=== PATIENT | female | born 1945 | race Caucasian/White ===

== ENCOUNTER → 2017-11-16 | Outpatient (CLI) | payer MEDICARE ==
[~2017-11-16] MED LIST: ASPI-496 PO; BUPR150T6 PO; CHOL200024 PO; DESV100T PO; LEVO25TA2 PO; LISI-167 PO; LMFO1TAB PO; MELO15TA24 PO
[2017-11-16 14:23] LABS: BASOPHILS # (AUTO) 0.07 x10^3/uL (0-0.1); BASOPHILS % (AUTO) 1 % (0-1); EOSINOPHILS % (AUTO) 0 % (1-7); LYMPHOCYTES # (AUTO) 2.28 x10^3/uL (1-3.4); LYMPHOCYTES % (AUTO) 31 % (22-44); MD NO; MEAN CORPUSCULAR HEMOGLOBIN 32.7 pg (27.0-34.8); MEAN CORPUSCULAR HGB CONC 33.1 g/dL (32.4-35.8); MEAN CORPUSCULAR VOLUME 98.7 fL (80-100); MEAN PLATELET VOLUME 8.6 fL (7.4-10.4); MONOCYTES # (AUTO) 0.48 x10^3/uL (0.2-0.8); MONOCYTES % (AUTO) 7 % (2-9); NEUTROPHILS # (AUTO) 4.55 x10^3/uL (1.8-6.8); NEUTROPHILS % (AUTO) 62 % (42-75); PLATELET COUNT 272 x10^3/uL (130-400); RED CELL DISTRIBUTION WIDTH 13.5 % (9.6-15.2)
[2017-11-16 14:32] LABS: CULTURE INDICATED? YES; MICROSCOPIC INDICATED
[2017-11-16 14:34] LABS: ALBUMIN 4.1 g/dL (3.4-5.0); CALCIUM 9.5 mg/dL (8.5-10.1); CHLORIDE 107 mmol/L (98-107)
[2017-11-16 14:38] LABS: ALANINE AMINOTRANSFERASE 38 U/L (12-78); ALKALINE PHOSPHATASE 94 U/L (45-117); ANION GAP 8 mmol/L (5-15); BILIRUBIN,TOTAL 0.5 mg/dL (0.2-1.0); CREATININE 0.86 mg/dL (0.55-1.02); TOTAL PROTEIN 7.8 g/dL (6.4-8.2)
== END | disposition home or self-care (01) ==
LOC: STAR 13:26
PROVIDERS: ATTEND Orthopaedic Surgery
DX: Z01.818 Encounter for other preprocedural examination (principal); R94.31 Abnormal electrocardiogram [ECG] [EKG]; M16.11 Unilateral primary osteoarthritis, right hip
CPT/HCPCS: 36415; 80053; 81001; 85025; 87081; 87086; 93005

== ENCOUNTER 2017-12-03 08:22 | Inpatient (IN) | payer MEDICARE ==
[~2017-12-03] VITALS: Ht 167.6 cm; Wt 86.6 kg
[~2017-12-03 08:22] MED LIST changes: +CEFAZOLIN 1,000 MG ONE; +FENTANYL PF 100 MCG/2ML ONE; +KETOROLAC 60 MG/2 ML ONE; +LIDOCAINE-MPF 2% ,5ML ONE; +MIDAZOLAM 1 MG/ML, 2ML ONE; +PROPOFOL 10 MG/ML, 20ML ONE; +ROPIvacaine/PF 0.5%, 20 ML ONE; +SODIUM CHLORIDE 0.9% 100 ML ONE; +SODIUM CHLORIDE 0.9% PF 10ML ONE; +TRANEXAMIC ACID 100 MG/ML, 10ML ONE; +VANCOMYCIN 1,000 MG ONE
[2017-12-03] MEDS ORDERED: LACTATED RINGERS 1,000 ML IV SCH (09:27)
[2017-12-03 09:29] VITALS: BP 150/93
[2017-12-03] MEDS ORDERED: LIDOCAINE-MPF 2% ,5ML ONE (09:50)
[2017-12-03] MEDS ORDERED: PROPOFOL 10 MG/ML, 20ML ONE (09:50)
[2017-12-03] MEDS ORDERED: PROPOFOL 50 ML ONE (10:29)
[2017-12-03] MEDS ORDERED: DEXAMETHASONE 4 MG/ML, 1ML ONE (10:39)
[2017-12-03] MEDS ORDERED: PROMETHAZINE 25 MG/ML, 1ML IV PRN (11:30)
[2017-12-03] MEDS ORDERED: HYDROmorphone 1 MG/ML, 1ML IV PRN ×2 (11:30→12:30)
[2017-12-03] MEDS ORDERED: LABETALOL 5MG/ML, 20ML IV PRN (11:30)
[2017-12-03] MEDS ORDERED: hydrALAzine 20 MG/ML, 1ML IV PRN (11:30)
[2017-12-03] MEDS ORDERED: ACETAMINOPHEN 325 MG TABLET PO PRN (11:30)
[2017-12-03] MEDS ORDERED: MEPERIDINE/PF 25MG/0.5ML IVPush PRN (11:30)
[2017-12-03] MEDS ORDERED: ONDANSETRON 2MG/ML, 2ML IVPush PRN (11:30)
[2017-12-03] MEDS ORDERED: FENTANYL PF 100 MCG/2ML IV PRN (11:30)
[2017-12-03] MEDS ORDERED: OXYcodone 5 MG/5 ML ORAL.SOL UDC PO PRN (11:30)
[2017-12-03] MEDS ORDERED: ONDANSETRON 2MG/ML, 2ML ONE ×3 (11:43→12:45)
[2017-12-03] MEDS ORDERED: OXYcodone 5 MG/5 ML ORAL.SOL UDC ONE (12:09)
[2017-12-03] MEDS ORDERED: FENTANYL PF 100 MCG/2ML ONE (12:09)
[2017-12-03] MEDS ORDERED: HYDROmorphone 2 MG/ML, 1ML ONE (12:09)
[2017-12-03] MEDS ORDERED: ACETAMINOPHEN 650 MG/20.3 ML UDC ONE (12:12)
[2017-12-03] MEDS ORDERED: DIAZEPAM 5 MG TABLET PO PRN (12:30)
[2017-12-03] MEDS ORDERED: PROMETHAZINE 12.5 MG SUPP PR PRN (12:30)
[2017-12-03] MEDS ORDERED: ONDANSETRON 2MG/ML, 2ML IV PRN (12:30)
[2017-12-03] MEDS ORDERED: MAGNESIUM HYDROXIDE 8%, 30ML UDC PO PRN (12:30)
[2017-12-03] MEDS ORDERED: ONDANSETRON 4 MG TABLET PO PRN (12:30)
[2017-12-03] MEDS: HYDROcodone/APAP 10/325 MG TABLET PO SCH ×3 (12:30→20:25)
[2017-12-03] MEDS ORDERED: SENNA/DOCUSATE TABLET PO PRN (12:30)
[2017-12-03] MEDS ORDERED: DIPHENHYDRAMINE 50 MG CAPSULE PO PRN (12:30)
[2017-12-03] MEDS ORDERED: ALUMINUM/MAG/SIMETHICONE 30 ML UDC PO PRN (12:30)
[2017-12-03] MEDS ORDERED: ZOLPIDEM 5MG TABLET PO PRN (12:30)
[2017-12-03] MEDS ORDERED: ACETAMINOPHEN 650 MG/20.3 ML UDC PO PRN (12:30)
[2017-12-03] MEDS ORDERED: HYDROcodone/APAP 10/325 MG TABLET PO PRN (12:30)
[2017-12-03] MEDS ORDERED: OXYcodone IR 5MG TABLET PO PRN (12:30)
[2017-12-03] MEDS: KETOROLAC 30 MG/1 ML IV SCH ×4 (12:30→23:30)
[2017-12-03] MEDS ORDERED: PROMETHAZINE 25 MG/ML, 1ML IM PRN (12:30)
[2017-12-03] MEDS ORDERED: BISACODYL 10 MG SUPP PR PRN (12:30)
[2017-12-03] MEDS ORDERED: TRANEXAMIC ACID 1,000 MG in SODIUM CHLORIDE 0.9% 100 ML IVPB ONE (12:50)
[2017-12-03] MEDS ORDERED: PROMETHAZINE 25 MG/ML, 1ML ONE (13:40)
[2017-12-03] MEDS: D5%-0.45% NACL 1,000 ML IV SCH ×3 (14:43→23:30)
[2017-12-03] MEDS: CEFAZOLIN PMX 2GM/50ML 50 ML IVPB SCH (18:00)
[2017-12-03] MEDS: ASPIRIN 81 MG TABLET CHEW PO SCH (18:20)
[2017-12-03 19:38] VITALS: BP 143/79
[2017-12-03] MEDS: DOCUSATE 100 MG CAPSULE PO SCH (20:25)
[2017-12-04 00:12] VITALS: BP 130/81
[2017-12-04] MEDS: HYDROcodone/APAP 10/325 MG TABLET PO SCH ×3 (00:14→08:32)
[2017-12-04] MEDS: CEFAZOLIN PMX 2GM/50ML 50 ML IVPB SCH (01:48)
[2017-12-04 03:30] VITALS: BP 123/69
[2017-12-04] MEDS: ASPIRIN 81 MG TABLET CHEW PO SCH (05:26)
[2017-12-04] MEDS ORDERED: DEXAMETHASONE 4 MG/ML, 1ML IVPush SCH (06:00)
[2017-12-04] MEDS ORDERED: LEVOTHYROXINE 25 MCG TABLET PO SCH (06:00)
[2017-12-04 08:18] VITALS: BP 130/73
[2017-12-04] MEDS: D5%-0.45% NACL 1,000 ML IV SCH (08:28)
[2017-12-04] MEDS: DOCUSATE 100 MG CAPSULE PO SCH (08:32)
[2017-12-04] MEDS ORDERED: [UNRECOGNIZED DRUG - MIXTURE] PO SCH (09:00)
[2017-12-04] MEDS ORDERED: BUPROPION HCL 150 MG PO SCH (09:00)
[2017-12-04] MEDS ORDERED: DESVENLAFAXINE SUCCINATE 100 MG PO SCH (09:00)
[2017-12-04] MEDS ORDERED: LISINOPRIL 10 MG TABLET PO SCH (09:00)
[2017-12-04] MEDS ORDERED: MULTIVITAMINS/MINERALS TABLET PO SCH (09:00)
[2017-12-04] MEDS ORDERED: KETOROLAC 30 MG/1 ML IV SCH (12:30)
[2017-12-04 13:06] VITALS: BP 156/80
[2017-12-04] MEDS ORDERED: OXYC5CAP2 PO (13:08)
== END 2017-12-04 13:15 | disposition home or self-care (01) | DRG 470 ==
LOC: ORIP 08:22 → 4NOR 14:16 → DCLOUNGE 12-04 13:04
PROVIDERS: ADMIT Orthopaedic Surgery; ATTEND Orthopaedic Surgery
PROC: 0LQJ0ZZ Repair Right Hip Tendon, Open Approach (ICD-10-PCS; 2017-12-03)
PROC: 0SR906Z Replacement of Right Hip Joint with Oxidized Zirconium on Polyethylene Synthetic Substitute, Open Approach (ICD-10-PCS; principal; 2017-12-03 09:15)
DX: M16.11 Unilateral primary osteoarthritis, right hip (principal); E03.9 Hypothyroidism, unspecified; I10 Essential (primary) hypertension; Z87.891 Personal history of nicotine dependence; Z88.8 Allergy status to other drugs, medicaments and biological substances
CPT/HCPCS: 36415; 85014; 85018; 86850; 86900; C1713; J0690; J1100; J1885; J2250; J2405; J2550; J2704; J2795; J3010; J3370; J3490; C1776; J7120